=== PATIENT | female | born 1940 | race Caucasian/White ===

== ENCOUNTER 2017-09-20 11:33 | Emergency (ER) | payer MEDICARE ==
[~2017-09-20] VITALS: Ht 154.9 cm; Wt 67.1 kg
--- OUTSIDE RECORDS SUMMARY | 2017-09-20 11:35 | XMS REPORT | Clinical Summary ---
Author Author [facility] Address Unknown Phone Unavailable Care Team Providers Care Comber Tender Name Role Phone Asuncion Mejias MD PCP Allergies Active Allergy Reactions Severity Noted Date Comments Iodine 09/16/2017 Current Medications Prescription Sig. Disp. Refills Start End Date Status Date atorvastatin (LIPITOR) 20 Take 20 mg by mouth Active MG tablet daily. Default OP ins levothyroxine (SYNTHROID, Take 88 mcg by mouth Active LEVOXYL) 88 mcg tablet every morning. fluticasone (FLONASE 2 sprays by Each Nare Active ALLERGY RELIEF) 50 route daily. mcg/actuation nasal spray calcium citrate-vitamin Take 1 tablet by mouth 2 Active D3 (CITRACAL+D) 315-200 (two) times a day. mg-unit per tablet Active Problems Not on file Encounters Date Type Specialty Care Team Description 09/16/2017 Emergency Emergency Medicine Polo Cat MD Epistaxis ( Primary Dx) after 09/19/2016 Social History Tobacco Use Types Packs/Day Years Used Date Never Smoker Smokeless Tobacco: Never Used Alcohol Use Drinks/Week oz/Week Comments No Sex Assigned at Date Recorded Not on file Last Filed Vital Signs Vital Sign Reading Time Taken Blood Pressure 147/66 09/16/2017 10:45 PM CDT Pulse 95 09/16/2017 10:45 PM CDT Temperature 36.9 C (98.4 F) 09/16/2017 9:20 PM CDT Respiratory Rate 18 09/16/2017 10:45 PM CDT Oxygen Saturation 97% 09/16/2017 10:45 PM CDT Inhaled Oxygen - - Concentration Weight 68.9 kg (152 lb) 09/16/2017 9:20 PM CDT Height 154.9 cm (5' 1") 09/16/2017 9:20 PM CDT Body Mass Index 28.72 09/16/2017 9:20 PM CDT Plan of Treatment Not on file Results * Blood smear consult (09/16/2017 9:57 PM) Component Value Ref Range Blood smear consult Done Comment: SEVERE THROMBOCYTOSIS WITH PLATELET CLUMPS AND LARGE FORMS. 1% BLASTS FORMS SEEN WITH LEUKOCYTOSIS AND NEUTROPHILIA. 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 NORMOCYTIC ANEMIA PRESENT. HEMATOLOGIC/FLOW CYTOMETRIC STUDIES IS RECOMMENDED TO FURTHER EVALUATION. REVIEWED BY DR. FAHAD PAYAN Specimen Performing Laboratory [facility] DEPARTMENT OF PATHOLOGY AND GENOMIC [facility] [id number] [place] [address] [place] [address] * Smear review (09/16/2017 9:55 PM) Component Value Ref Range Platelet slide review Mkd increased (A) Giant platelets Occasional Specimen Performing Laboratory [facility] DEPARTMENT PATHOLOGY AND [address] [place], [place] [address] * Estimated GFR (09/16/2017 9:55 PM) Component Value Ref Range GFR Non Af Amer 61 mL/min/1.73 m2 GFR Af Amer 74 mL/min/1.73 m2 Comment: Chronic kidney disease: <60 mL/min/1.73m2 Kidney failure: <15 mL/min/1.73m2 The estimated GFR is calculated from the IDMS-traceable Modification of Diet in Renal Disease Equation. The accuracy of the calculation is poor when the creatinine is normal. Calculated values >90 mL/min/1.73m2 are not reported. This equation has not been validated in children (<18 years), women, the elderly (>70 years), or ethnic groups other than Caucasians and Americans. Specimen Performing Laboratory Plasma specimen [facility] DEPARTMENT OF PATHOLOGY AND [employer] [facility] [id number] [place] [address] Dr [place], [place] [address] * Partial thromboplastin time, activated (09/16/2017 9:55 PM) Component Value Ref Range PTT 25.8 23.0 - 36.0 sec Comment: PTT therapeutic range for unfractionated heparin is 61.0-112.0 seconds which corresponds to Anti-Xa 0.3-0.7 U/ml. Specimen Performing Laboratory Blood [facility] DEPARTMENT OF PATHOLOGY AND GENOMIC [facility] [id number] [place] [address] [place] [address] * Prothrombin time with INR (09/16/2017 9:55 PM) Component Value Ref Range Prothrombin time 13.3 12.0 - 15.0 sec INR 1.0 Comment: The International Normalized Ratio (INR) is a therapeutic monitoring tool for patients who are stable on oral anticoagulant therapy. An INR of 2.0-3.0 is suggested for deep vein thrombosis/pulmonary embolism. Specimen Performing Laboratory Blood [facility] DEPARTMENT OF PATHOLOGY AND GENOMIC MEDICINE [address] [place] [address] * CBC with platelet and differential (09/16/2017 9:55 PM) Component Value Ref Range WBC 17.81 (H) 4.50 - 11.00 k/uL RBC 4.06 (L) 4.20 - 5.50 m/uL HGB 11.6 (L) 12.0 - 16.0 g/dL HCT 36.3 (L) 37.0 - 47.0 % MCV 89.4 82.0 - 100.0 fL MCH 28.6 27.0 - 34.0 pg MCHC 32.0 31.0 - 37.0 g/dL RDW - SD 52.7 37.0 - 55.0 fL MPV 9.9 8.8 - 13.2 fL Platelet count 1,466 (HH)Comment: Results called to and read back 150 - 400 k/uL by JAMES FRANCISCO 09/16/2017 22:03 BY [facility] Nucleated RBC 0.00 /100 WBC Neutrophils 81.7 (H) 39.0 - 69.0 % Lymphocytes 10.6 (L) 25.0 - 45.0 % Monocytes 4.4 0.0 - 10.0 % Eosinophils 1.9 0.0 - 5.0 % Basophils 0.7 0.0 - 1.0 % Specimen Performing Laboratory Blood [facility] DEPARTMENT OF PATHOLOGY AND [facility] [address] [place] [address] * Basic metabolic panel (09/16/2017 9:55 PM) Component Value Ref Range Sodium 142 135 - 148 mEq/L Potassium 4.1 3.5 - 5.0 mEq/L Chloride 103 98 - 112 mEq/L CO2 26 24 - 31 mEq/L Anion gap 13 7 - 15 mEq/L Comment: Starting from August , anion gap calculation no longer incorporates potassium. Please note the change. BUN 33 (H) 8 - 23 mg/dL Creatinine 0.9 0.5 - 0.9 mg/dL Glucose 137 (H) 65 - 99 mg/dL Calcium 9.1 8.8 - 10.2 mg/dL Specimen Performing Laboratory Plasma specimen [facility] DEPARTMENT OF PATHOLOGY AND GENOMIC MEDICINE [address] [place] [address] after 09/19/2016 Insurance Payer Benefit Subscriber ID Type Phone Address Plan / Group [facility] xxxxxxxxxx HMO ADVANTAGE [facility]
[2017-09-20] MEDS ORDERED: TRAMADOL HCL 50 MG TAB PO ONE (12:45)
[2017-09-20 13:05] LABS: BASOPHILS # (AUTO) 0.1 (0.0-0.1); BASOPHILS % 0.6 % (0.0-1.0); EOSINOPHILS # (AUTO) 0.3 (0.0-0.4); EOSINOPHILS % 2.1 % (0.0-6.0); HEMATOCRIT 33.7 % (34.2-44.1); HEMOGLOBIN 10.8 g/dL (12.0-16.0); LYMPHOCYTES # (AUTO) 2.2 (1.0-3.2); LYMPHOCYTES % 14.3 % (18.0-39.1); MEAN CORPUSCULAR HEMOGLOBIN 28.7 pg (28-32); MEAN CORPUSCULAR VOLUME 89.6 fL (81-99); MONOCYTES % 6.4 % (4.4-11.3); NEUTROPHILS # (AUTO) 11.8 (2.1-6.9); NEUTROPHILS % 75.9 % (38.7-80.0); RED BLOOD COUNT 3.76 x10e6/uL (3.6-5.1); RED CELL DISTRIBUTION WIDTH 16.6 % (11.7-14.4)
[2017-09-20 13:10] LABS: PLATELET COUNT 1086 x10e3/uL (140-360)
[2017-09-20 13:26] LABS: ALANINE AMINOTRANSFERASE 22 IU/L (0-55); ALBUMIN 3.5 g/dL (3.5-5.0); ALKALINE PHOSPHATASE 72 IU/L (40-150); ANION GAP 11.8 mmol/L (8-16); BLOOD UREA NITROGEN 13 mg/dL (7-26); BUN/CREATININE RATIO 16 (6-25); CALCIUM 9.8 mg/dL (8.4-10.2); CARBON DIOXIDE 24 mmol/L (22-29); CHLORIDE 108 mmol/L (98-107); CREATININE, SERUM 0.79 mg/dL (0.57-1.11); EST GLOMERULAR FILTRATION RATE > 60 ML/MIN (60-); GLUCOSE 110 mg/dL (74-118); POTASSIUM 3.8 mmol/L (3.5-5.1); SODIUM 140 mmol/L (136-145)
[2017-09-20 14:32] LABS: EOSINOPHILS % (MANUAL) 2 % (0-7); LYMPHOCYTES % (MANUAL) 13 % (19-48); MONOCYTES % (MANUAL) 5 % (3.4-9.0); NEUTROPHILS % (MANUAL) 80 % (40-74)
[2017-09-20 14:34] LABS: PLATELET ESTIMATE MARKEDLY INCREASED
[2017-09-20 14:35] LABS: GIANT PLATELETS FEW; LARGE PLATELETS FEW
[2017-09-20 14:36] LABS: PLATELET MORPHOLOGY COMMENT FEW LARGE; RBC MORPHOLOGY COMMENT NORMAL
[2017-09-20 18:29] VITALS: BP 133/64
--- NOTE | 2017-09-21 13:03 | Cardiology Report ---
DATE OF STUDY: September 20, 2017 DOPPLER SCAN OF LOWER EXTREMITY VEINS The lower extremity veins were interrogated using the Duplex scanning method. The veins were compressible. There was no definite deep venous thrombosis. CONCLUSION: No definite deep venous thrombosis identified in the lower extremity veins bilaterally. Job#: [id number]
== END 2017-09-20 18:31 | disposition home or self-care (01) ==
LOC: ER 11:33
DX: M79.651 Pain in right thigh (principal); L03.115 Cellulitis of right lower limb
CPT/HCPCS: 36415; 80053; 85025; 85730; 93970; 99283